=== PATIENT | male | born 1975 | race Caucasian/White ===

== ENCOUNTER 2018-12-06 20:02 | Emergency (ER) | payer SELFPAY ==
[2018-12-06 20:02] VITALS: BP 136/87; PULSE 70; RESP 16; TEMP 36.6; O2SAT 95; BMI 27.5
--- NOTE | 2018-12-06 20:12 | ED.DCSUM_ITS ---
- ER Visit Summary Date of Service: 12/06/18 Chief Complaint: Cough, shortness of breath History of Present Illness: The patient is a 43 M who has had a cough and shortness of breath. Is been ongoing for 2 days. Last week he had influenza and had elevated temperatures and a cough that was dry but he started to feel better. 2 days ago he had a cough is now productive of sputum and rhinorrhea. He denies any chest pain. No fevers currently. He has heard himself wheezing. He admits to being a pretty heavy smoker but denies any history of COPD. He has not smoked in a couple of days. Physical Examination: Vital signs reviewed. HEENT exam unremarkable. Heart is regular rate and rhythm without murmurs. Lungs have diffuse expiratory wheezing. Abdomen is soft and nontender. Extremities reveal no edema. Skin exam normal. Neurologic exam normal. Test Results: Chest x-ray negative Emergency Department Course and Treatment: Patient was given albuterol. He feels much better. Patient will be discharged with an albuterol inhaler. He will follow-up with his PCP Treatment Plan: [] Disposition: Discharge Impression: Cough This note was generated with [employer] dictation software. It may contain incorrect words, spelling, and punctuation that were not noted in review of the chart prior to signing ED Disposition - Plan for ED Patient: Referrals: Jaylin Davis PA [Primary Care Provider] -
[2018-12-06 20:27] VITALS: O2SAT 95
--- NOTE | 2018-12-06 20:27 | RAD_ITS ---
STUDY: X-RAY CHEST REASON FOR EXAM: Male, 43 years old. Cough, SOB. TECHNIQUE: PA and lateral chest. COMPARISON: None. FINDINGS: The lungs are clear and expanded. There is no demonstrated pleural abnormality. Normal size heart. Normal mediastinum and eva. Normal visualized pulmonary arteries. Normal visualized aortic arch and descending thoracic aorta. Normal visualized thoracic spine. Normal visualized ribs, clavicles, and shoulders. There is no demonstrated abnormality of the visualized soft tissue structures of the upper abdomen. RAD/Chest PA and Lateral IMPRESSION: Normal x-ray examination of the chest. Electronically Signed: Cassidy Bond MD at 22:35 EDT Tel , Service support ,
[2018-12-06 20:47] VITALS: PULSE 74; RESP 18
[2018-12-06] MEDS: Albuterol 2.5 MG/3 ML VIAL.NEB. INHALATION (20:47)
--- NOTE | 2018-12-06 22:44 | ED.DEP ---
ED Disposition - Plan for ED Patient: Disposition: Home or Assisted Living Instructions: ED Reactive Airway Disease Prescriptions: Albuterol Inhaler [Ventolin Hfa] 1 - 2 puff INHALATION Q4H PRN PRN #1 inhaler PRN Reason: Wheezing Referrals: Jaylin Davis PA [Primary Care Provider] -
[2018-12-06 22:49] VITALS: BP 109/83; PULSE 71; RESP 18; O2SAT 95
== END 2018-12-06 22:50 | disposition home or self-care (01) ==
PROVIDERS: Emergency Provider Emergency Medicine; Family Provider Physician Assistant; PCP Physician Assistant
DX: R05 Cough (principal); R06.02 Shortness of breath; K21.9 Gastro-esophageal reflux disease without esophagitis; F17.200 Nicotine dependence, unspecified, uncomplicated
CPT/HCPCS: 71046; 94640; 99282

== ENCOUNTER 2021-06-03 17:45 | Emergency (ER) | payer SELFPAY ==
[2021-06-03 17:46] VITALS: BP 140/99; PULSE 112; RESP 20; TEMP 36.4; O2SAT 97; BMI 25.4
--- NOTE | 2021-06-03 19:04 | ED.RN ---
PT LEFT WITHOUT BEING SEEN
--- NOTE | 2021-06-03 19:21 | EKG12_ITS ---
Test Reason : CP Blood Pressure : / mmHG Vent. Rate : 105 BPM Atrial Rate : 105 BPM P-R Int : 134 ms QRS Dur : 088 ms QT Int : 342 ms P-R-T Axes : 054 009 069 degrees QTc Int : 452 ms Sinus tachycardia Otherwise normal ECG Confirmed by DOMENICO MENJIVAR, FRANKLYN ([id number]), desk editor SURYA EDWARDS ([id number]) on 06/04/2021 10:56:59 AM Referred By: CARRINGTON Confirmed By:FRANKLYN ACUÑA MD
== END 2021-06-03 18:50 | disposition left against medical advice (07) ==
LOC: ED 19:11
PROVIDERS: PCP Physician Assistant
DX: Z53.21 Procedure and treatment not carried out due to patient leaving prior to being seen by health care provider (principal)
CPT/HCPCS: 93005